=== PATIENT | female | born 1935 | race Caucasian/White ===

== ENCOUNTER 2018-10-22 09:32 | Inpatient (IN) | payer MEDICARE, BC ==
[~2018-10-22] VITALS: Ht 165.1 cm; Wt 68.3 kg
[2018-10-22] MEDS ORDERED: LOW DOSE ASPIRI81 M1 PO (09:59)
[2018-10-22 10:00] LABS: APPEARANCE CLEAR (CLEAR); COLOR COLORLESS (YELLOW)
[2018-10-22] MEDS ORDERED: FISH OIL 1,0001 CA1 PO (10:00)
[2018-10-22] MEDS ORDERED: CALCIUM 600 +1 EAC3 PO (10:00)
[2018-10-22] MEDS ORDERED: CELEXA20 MG PO (10:00)
[2018-10-22 10:01] LABS: BILIRUBIN NEGATIVE (NEGATIVE); GLUCOSE NEGATIVE (NEGATIVE); KETONE NEGATIVE (NEGATIVE); NITRITE NEGATIVE (NEGATIVE); PROTEIN NEGATIVE (NEGATIVE); UROBILINOGEN NORMAL (NORMAL)
[2018-10-22] MEDS ORDERED: LIPITOR10 MG PO (10:01)
[2018-10-22] MEDS ORDERED: ZESTORETIC 20-1 EACH PO (10:01)
[2018-10-22] MEDS ORDERED: FOLIC ACID1 MG PO (10:01)
[2018-10-22] MEDS ORDERED: TREXALL10 MG IM (10:03)
[2018-10-22] MEDS ORDERED: LOPRESSOR25 MG PO (10:03)
[2018-10-22] MEDS ORDERED: PREDNISONE1 MG PO (10:04)
[2018-10-22] MEDS ORDERED: PRESERVISION AREDS PO (10:05)
[2018-10-22] MEDS ORDERED: VITAMIN D31000 UNIT PO (10:06)
[2018-10-22 10:24] LABS: UDS - AMPHET NEGATIVE QUAL (NEGATIVE); UDS - BARB NEGATIVE QUAL (NEGATIVE); UDS - BENZO NEGATIVE QUAL (NEGATIVE); UDS - COCAINE NEGATIVE QUAL (NEGATIVE); UDS - OPIATE NEGATIVE QUAL (NEGATIVE); UDS - PCP NEGATIVE QUAL (NEGATIVE); UDS - THC NEGATIVE QUAL (NEGATIVE)
[2018-10-22 10:45] LABS: APTT 28.4 SECONDS (22.8-39.4); INR 1.02 (0.85-1.17); PROTIME 12.9 SECONDS (11.6-15.0)
[2018-10-22 10:49] LABS: ALBUMIN 3.7 g/dL (3.4-5.0); ALKALINE PHOSPHATASE 39 U/L (46-116); ALT (SGPT) 35 U/L (10-68); BILIRUBIN - TOTAL 0.78 mg/dL (0.2-1.3); CALC OSMOLALITY 283 mosm/kg (275-300); CALCIUM 9.8 mg/dL (8.5-10.1); CHLORIDE - SERUM 103 mmol/L (98-107); CREATININE - SERUM 0.6 mg/dL (0.6-1.3); GLUCOSE 98 mg/dL (74-106); POTASSIUM - SERUM 4.1 mmol/L (3.5-5.1); PROTEIN - SERUM 6.4 g/dL (6.4-8.2); SODIUM 143 mmol/L (136-145); UREA NITROGEN 9 mg/dL (7-18); eGFR NON AFRICAN AMERICAN > 90 mL/min (90-120)
[2018-10-22 11:03] LABS: BASOPHILS 0.4 % (0-2); EOSINOPHILS 1.3 % (0-7); HEMATOCRIT 41.4 % (36.0-48.0); IMMATURE GRANULOCYTES 0.4 % (0-5); LYMPHOCYTES 11.3 % (15-50); MCH 32.1 pg (26.0-34.0); MCHC 33.8 g/dL (31.0-37.0); MEAN PLATELET VOLUME 11.4 fL (7.4-10.4); MONOCYTES 8.6 % (2-11); PLATELET COUNT 286 10x3/uL (130-400); RBC 4.36 10x6/uL (4.00-5.40); RDW 15.1 % (11.5-14.5); WBC 11.2 10x3/uL (4.8-10.8)
[2018-10-22 11:16] LABS: CHOLESTEROL, TOTAL 126 mg/dL (0-200); HDL CHOLESTEROL 62 mg/dL (32-96); LDL CHOLESTEROL 50 mg/dL (0-100); LDL-HDL RATIO 0.8 ratio (1.5-3.5); MAGNESIUM - SERUM 1.9 mg/dL (1.8-2.4); THYROID STIMULATING HORMONE 0.72 uIU/mL (0.36-3.74); TRIGLYCERIDE 71 mg/dL (30-200)
[2018-10-22 15:08] VITALS: BP 135/74; BMI 24.7
--- NOTE | 2018-10-22 15:45 | NUR ---
The patient admits to us voluntarily with her daughters as POA, she is a DNR, she has increased confusion, insomnia, and she was seen ambulating the Crossing hallways without her pants and she has no recollection of this occurrence. She is tearful and angry at this time as she believes people are telling lies about her. She has one abdominal scar from a hysterectomy and an umbilical hernia. She uses a rolling walker to ambulate and has her personal walker. She is wearing white post ear rings, and has a pair of yellow metal glasses on. She has a partial plate uppers and a bottom plate denture. She has a small scab on her left vásquez about the size of a pencil eraser, She says she has no idea how she got the scab. The patient does have some noted memory deficits, but she is intelligent and provides a cover by stating "Well, doesn't everyone have memory lapses from time to time." It is noted that she is demanding and her daughters have stated she has always been one to control. Will monitor her mood and behaviors.
--- NOTE | 2018-10-22 19:57 | NUR ---
RECEIVED IN DAYROOM. SITTING IN A CHAIR. CALM AND COOPERATIVE WITH CARE AND ASSESSMENT. USES WALKER TO AMBULATE AROUND DAYROOM. SOCIAL AT TIMES. REDIRECT AND REORIENT NEEDED. SITTING AT [facility] SOCIALIZING WITH A PEER AT THIS TIME. CONTINUE PLAN OF CARE
[2018-10-23 08:34] VITALS: BP 153/70
--- NOTE | 2018-10-23 09:46 | NUR ---
PT SITTING UP IN DAYROOM. PT INSISTS THAT DAUGHTER HAS NO IDEA WHERE SHE IS AND THAT SHE NEEDS TO SEE HER RAKAN. PT TEARFUL AT THIS TIME. JENNIE.
[2018-10-23 20:00] VITALS: BP 149/76
--- NOTE | 2018-10-24 01:36 | NUR ---
B) Patient is alert and oriented to person and place, impatient and intrusive at times, I) Administered scheduled medications as ordered, monitored for safety and for needs, R) mediation compliant, pleasant and cooperative, P) Contionue plan of care,
--- NOTE | 2018-10-24 09:17 | NUR ---
CALL RESP DUE TO PATIENT O2 SAT NOT BEING OVER 78 ON FINGER AND UNABLE TO GET FROM EARLOBE. PER RESP 98% O2 SAT.
--- NOTE | 2018-10-24 09:30 | NUR ---
PATIENT SITTING IN CHAIR SOCIALIZING WITH PEERS. PT CAN AMBULATE WITH WALKER. COMPLIANT WITH MEDS, ASSESMENTS AND VITALS. PT IS CONFUSED AND ORIENTED TO SELF ONLY. WILL CONT PLAN OF CARE.
[2018-10-24 10:42] VITALS: BP 156/71
--- NOTE | 2018-10-24 12:36 | NUR ---
SPOKE WITH DAUGHTER. CODEWORD GIVEN AND CORRECT. UPDATE GIVEN. AND STATED THEY WERE COMING TO VISITATION.
[2018-10-24 13:30] VITALS: Ht 165.1 cm; Wt 68.3 kg
--- NOTE | 2018-10-24 15:07 | HP ---
PATIENT: DALIA MURILLO MEDICAL RECORD: [id number] ACCOUNT: [id number] LOCATION:[facility] Rivera5 : 37 ADMISSION DATE: 10/22/18 PCP: No PCP HISTORY AND PHYSICAL EXAMINATION IDENTIFYING DATA: The patient is 83 years old and she is admitted to the hospital on a voluntary basis. CHIEF COMPLAINT: Agitation. HISTORY OF PRESENT ILLNESS: The patient lives in a local assisted living center. She has not been sleeping. She has been wandering the halls and away from the facility and often becomes agitated, angry, and demanding when she is redirected. She is clearly quite impaired and has a history of dementia and does not have any recollection of these problems. PAST MEDICAL HISTORY: Significant for stroke, peripheral vascular disease, hyperlipidemia, rheumatoid arthritis, and hysterectomy. PAST PSYCHIATRIC HISTORY: Significant for an established diagnosis of dementia, although I do not have details about how or when that diagnosis was made. ALLERGIES: ARICEPT. CURRENT MEDICATIONS: Include: Aspirin, calcium, Celexa, folic acid, Lipitor, lisinopril, methotrexate, metoprolol, prednisone, and vitamin D3. FAMILY HISTORY: Unknown. SOCIAL HISTORY: The patient is and has adult children who are involved with her care. She is living in an assisted living center. She denies a history of drug or alcohol use and states she has never smoked cigarettes. MENTAL STATUS EXAMINATION: The patient is awake, alert, and oriented to person, place, time, and situation. Her mood is flat. Her affect is constricted. Thought processes are circumstantial. Memory, concentration, and abstraction abilities are at least moderately impaired. She denies any active intent to harm herself or others as well as overt psychotic symptoms. ASSETS: Supportive family members. LIABILITIES: Limited insight. DIAGNOSTIC IMPRESSION: AXIS I: Vascular dementia. AXIS II: None. AXIS III: Status post stroke, peripheral vascular disease, hyperlipidemia, hypertension, rheumatoid arthritis. AXIS IV: Moderate stressors. AXIS V: Global assessment of functioning is 30. PLAN: At this time, the patient is admitted to the hospital secondary to agitated and disruptive behaviors associated with a dementing illness. She will be treated with mood stabilizing and memory enhancing medications. Her long-term prognosis is guarded. HISTORY AND PHYSICAL [id number] DALIA MURILLO TRANSINT:[id number] Voice Confirmation ID: [id number] DOCUMENT ID: [id number] KRISTYN BARRIOS MD at 1507 CC: [id number] DICTATION DATE: 10/23/18 1622 GRINDING ROOM SUPERVISOR: 10/23/18 2145 ADM IN [place] [id number] [place] [id number]
--- NOTE | 2018-10-24 17:23 | NUR ---
FAMILY REQUEST MIRALAX OR SOME TYPE OF STOOL SOFTER. WILL REQUEST MEDICATION FROM DOCTOR.
--- NOTE | 2018-10-24 17:56 | NUR ---
PATIENT IS REQUESTING TO LEAVE AT THIS TIME STATING " MY DAUGHTER CAME TO GET ME AND WE VISITED. WENT OUT TO EAT AND SHE LEFT ME HERE." UNABLE TO REDIRECT PATIENT THAT THE DAUGHTER CAME FOR VISITATION. SHE THINKS SHE CAME HERE FOR A VISIT. SHE THINKS JOHN IS THE PATIENT AND THAT SHE NEEDS TO LEAVE. SHE IS NOT A PATIENT IN THE HOSPITAL.
--- NOTE | 2018-10-24 18:17 | NUR ---
PATIENT SPOKE WITH DAUGHTER ELI CHRISTINA. PATIENT THINKS THERE IS A SITUATION THAT SHE WILL NOT BE HOME TONIGHT. AND SHE TOLD HER THAT AND WAS ABLE TO BE REDIRECTED.
[2018-10-24 20:14] VITALS: BP 107/41
--- NOTE | 2018-10-25 02:51 | NUR ---
B.) PT IS ALERT AND ORIENTED TO SELF AND PLACE. SHE IS PLEASANT WITH STAFF AND PEERS. SHE CAN ME TEARFUL AT TIMES WHEN SHE STARTS TO FEEL INCREASING CONFUSION. I.) REDIRECT AND REORIENT OFTEN. R.) PT CAN OFTEN BE REDIRECTED AFTER MULTIPLE ATTEMPTS. P.) CONTINUE PLAN OF CARE
--- NOTE | 2018-10-25 08:31 | NUR ---
PATIENT AWAITING BREAKFAST IN CHAIR BY NURSES STATION. RESP EVEN AND NONLABORED. NO ACUTE DISTRESS NOTED. PT IS ALERT AND ORIENTED TO SELF ONLY. PT IS ASKING FOR HER DAUGHTER TO COME SEE HER TODAY AND THAT THE DOCTOR IS SUPPOSE TO BE COMING TO SEE HER TODAY. PT HAS NO SHORT TERM MEMORY. AMBULATES WITH A WALKER. CAN BE ARGUMENTIVE AT TIMES. CAN BE HARD TO REDIRECT. WILL CONT PLAN OF CARE.
[2018-10-25 08:43] VITALS: BP 126/65
[2018-10-25 09:15] VITALS: BP 156/71
--- NOTE | 2018-10-25 10:05 | NUR ---
PATIENT DAUGHTER ELI CALLED TO CHECK ON PATIENT. PASSCODE GIVEN. UPDATE GIVEN. DAUGHTER ASKED ABOUT DISCHARGE PLANNING. EXPLAINED THAT IT WAS A BIT TOO SOON FOR DISCHARGE PLANNING. SHE VERBALIZIED UNDERSTANDING.
--- NOTE | 2018-10-25 10:17 | NUR ---
SPOKE WITH [facility] THE CROSSING TO CHECK ON PATIENT PROGRESS AND TO ASK ABOUT PATIENT DISCHARGE. EXPLAINED PATIENT HAD NOT BEEN IN THE UNIT LONG ENOUGH FOR EXACT DISCHARGE DATE. SHE SAID SHE WOULD CALL BACK NEXT WEEK FOR MORE DISCHARGE INFORMATION.
--- NOTE | 2018-10-25 14:55 | NUR ---
The patient is confused, she saays "Is someone trying to get in touch with Mevli?" Tried to explain to her that "No, today is not visitation day, but you can call her at 5:30." She is getting upset. She does not comprehend and she is forgetful from one minute to the next. She can be demanding and argumentative when staff does not agree to what she is saying.
--- NOTE | 2018-10-25 16:02 | PN ---
PATIENT:DALIA MURILLO MEDICAL RECORD: [id number] LOCATION:[facility]112 ADMISSION DATE: 10/22/18 PROGRESS NOTE DATE OF SERVICE: 10/24/2018 SUBJECTIVE: The patient's case was discussed with staff. She has no new complaint. OBJECTIVE: The patient is in good behavioral control with limited insight about her condition. She is somewhat labile, but is reasonably redirectable. ASSESSMENT: Dementia. PLAN: Current medicines have been reviewed and will be maintained. Long-term prognosis is guarded. TRANSINT:[id number] Voice Confirmation ID: [id number] DOCUMENT ID: [id number] KRISTYN BARRIOS MD at 1602 CC: [id number] DICTATION DATE: 10/24/18 1547 EXTRUDING PRESS ADJUSTER: 10/24/18 2317 ADM IN [place] [id number] [place] [address]
--- NOTE | 2018-10-25 19:08 | NUR ---
NURSE OVERHEARD PATIENT ON PHONE STATING "I NEED TO GO TO THE BATHROOM BUT THEY WON'T LET ME GO." MHT TOOK PATIENT INTO THE RESTROOM TO USE. NURSE ASKED PATIENT TO HAVE HER DAUGHTER CALL BACK SO THAT SHE COULD GO TO THE RESTROOM. ELI VOICED UNDERSTANDING. MHT TOOK PATIENT INTO THE RESTROOM. PATIENT CALLED DAUGHTER BACK AND SPOKE WITH HER. DAUGHTER VOICED UNDERSTANDING ABOUT THE SITUATION.
[2018-10-25 20:17] VITALS: BP 117/58
--- NOTE | 2018-10-25 20:18 | NUR ---
PATIENT IS CONFUSED, HAS TO BE REMINDED WHY SHE IS IN HERE, SHE'S EMOTIONAL ABOUT BEING IN HERE. COMPLIANT WITH MEDS. WILL FOLLOW POC
[2018-10-26 07:30] VITALS: BP 122/54
--- NOTE | 2018-10-26 12:44 | PN ---
PATIENT:DALIA MURILLO MEDICAL RECORD: [id number] LOCATION:[facility] [address]112 ADMISSION DATE: 10/22/18 PROGRESS NOTE DATE OF SERVICE: 10/25/2018 SUBJECTIVE: The patient's case was discussed with staff. She has no new complaint. OBJECTIVE: The patient is oriented to person and has a very pleasant and euthymic mood. Unfortunately, she has almost no short term memory and is asking the same questions repeatedly almost back to back. ASSESSMENT: Dementia. PLAN: Current medicines have been reviewed and will be maintained. She is not presenting an active danger to herself and I would recommend that alternate placement be sought. She is inappropriate for assisted living and needs a higher level of care. Efforts will be made to assist the family with that. TRANSINT:[id number] Voice Confirmation ID: [id number] DOCUMENT ID: [id number] KRISTYN BARRIOS MD at 1244 CC: [id number] DICTATION DATE: 10/25/18 1609 FREIGHT FLAGMAN: 10/25/18 1920 ADM IN [facility] [address] [place] [id number]
--- NOTE | 2018-10-26 14:50 | NUR ---
PATIENT IS ALERT AND ORIENTED TO SELF ONLY. CONFUSION NOTED. PT HAS POOR INSIGHT AND VERY SHORT TERM MEMORY. PT CAN MAKE NEEDS KNOWN. ENCOURAGE PT TO DRINK FLUIDS. COMPLIANT WITH MEDS, ASSESSMENTS AND VITALS. WILL CONT PLAN OF CARE.
--- NOTE | 2018-10-26 19:55 | NUR ---
AMBULATING IN HALLWAY WITH ASSIST OF ROLLING WALKER. CONFUSED. ORIENTED TO SELF AND HOSPITAL. RECURRENT THEMES INVOLVING HER DAUGHTER JOHN. WANTING JOHN TO BE CALLED SO SHE WOULD KNOW WHERE SHE IS AND RELATED JOHN TOLD HER SHE WOULD BE IN BED BEFORE MIDNIGHT TONIGHT. PLEASANT. DOES BECOME TEARFUL AND NEEDS REASSURANCE THAT THINGS ARE ALRIGHT. ADMINISTER MED PER ORDERS Q SHIFT AND MONITOR COMPLIANCE. REORIENT NEEDED. MED COMPLIANT. POOR REORIENTATION DUE TO IMPAIRED ABILITY TO RETAIN INFORMATION. CONTINUE POC AND PROVIDE SAFE ENVIRONMENT.
[2018-10-26 20:00] VITALS: BP 119/50
[2018-10-27 08:14] VITALS: BP 96/57
--- NOTE | 2018-10-27 11:14 | NUR ---
B) The patient is awake and alert, she is confused and forgets within minutes. She is tearful at times. She requires a lot of 1:1 attention. I) Provide prescribed meds. R) The patient is compliant with meds. P) Continue POC.
--- NOTE | 2018-10-27 11:29 | PN ---
PATIENT:DALIA MURILLO MEDICAL RECORD: [id number] LOCATION:[facility] [address]112 ADMISSION DATE: 10/22/18 PROGRESS NOTE DATE OF SERVICE: 10/26/2018 SUBJECTIVE: The patient's case was discussed with staff. She has no new complaint. OBJECTIVE: The patient slept well and ate well last night. She is confused, but has not been agitated today. ASSESSMENT: No change in diagnoses. PLAN: The patient is in need of 92-gkvz-s-day supervision. Current medicines have been reviewed. TRANSINT:[id number] Voice Confirmation ID: [id number] DOCUMENT ID: [id number] KRISTYN BARRIOS MD at 1129 CC: [id number] DICTATION DATE: 10/26/18 1313 AVIONICS SAFETY INSPECTOR: 10/26/18 1356 ADM IN [place] [id number] [place] [address]
--- NOTE | 2018-10-27 19:19 | NUR ---
PATIENT ASKED FOR NURSE TO HAVE A DOCTOR COME TO CHECK HER HEART. NURSE OFFERED TO CHECK HER HEART AND SHE REFUSED STATING "I WANT A ACTUAL MEDICATION DOCTOR TO CHECK ME." NURSE EXPLAINED TO PATIENT THAT THE DOCTOR ROUNDED IN THE HOSPITALS TODAY AND WOULD BE BACK TOMORROW. WE COULD CALL THE DOCTOR TO TELL THEM WHAT WAS WRONG. SHE REFUSED STATING SHE WANTED TO TALK TO THE DOCTOR." PATIENT DID NOT BELIEVE NURSE. 3X STAFF MEMBERS ATTEMPTED TO EXPLAIN. PT DID NOT BELIEVE STAFF.
[2018-10-27 20:00] VITALS: BP 138/59
--- NOTE | 2018-10-27 20:45 | NUR ---
RECEIVED IN DINING AREA. WALKING FROM BATHROOM. CALM AND COOPERATIVE WITH CARE AND ASSESSMENT. CONFUSED. CALM AND COOPERATIVE WITH CARE AND ASSESSMENT. SITTING IN A CHAIR IN DAYROOM AT THIS TIME. CONTINUE PLAN OF CARE
[2018-10-28 08:00] VITALS: BP 133/64
--- NOTE | 2018-10-28 13:29 | NUR ---
PT IS ALERT TO PERSON. PT IS CALM AND COOPERATIVE WITH ASSESSMENT. MED COMPLIANT. REDIRECT AND REORIENT NEEDED. FALL PRECAUTIONS IN PLACE. WILL CPOC.
--- NOTE | 2018-10-28 15:00 | PN ---
PATIENT:DALIA MURILLO MEDICAL RECORD: [id number] LOCATION:[facility] [address]112 ADMISSION DATE: 10/22/18 PROGRESS NOTE DATE OF SERVICE: 10/27/2018 SUBJECTIVE: The patient's case was discussed with staff. She has no new complaint. OBJECTIVE: The patient is in good behavioral control, but quite confused. ASSESSMENT: No change in diagnoses. PLAN: The patient is going to be started on Namenda at a dose of 2.5 mg twice daily. Namenda is being used to treat her underlying cognitive impairment. Her long-term prognosis is guarded. TRANSINT:[id number] Voice Confirmation ID: [id number] DOCUMENT ID: [id number] KRISTYN BARRIOS MD at 1500 CC: [id number] DICTATION DATE: 10/27/18 1140 PHARMACOGENETICIST: 10/27/18 1247 ADM IN [place] [id number]
[2018-10-28 20:20] VITALS: BP 127/42
--- NOTE | 2018-10-28 21:33 | NUR ---
RECEIVED IN DAYROOM. SITTING IN A CHAIR WITH PEERS AT HER SIDE. SOCIALIZING AT TIMES. CALM AND COOPERATIVE WITH CARE AND ASSESSMENT. POOR SHORT TERM MEMORY. REDIRECT AND REORIENT NEEDED. RESTING IN BED WITH EYES OPEN AT THIS TIME. CONTINUE PLAN OF CARE
[2018-10-29 08:00] VITALS: BP 125/59
--- NOTE | 2018-10-29 09:24 | PN ---
PATIENT:DALIA MURILLO MEDICAL RECORD: [id number] LOCATION:[facility]112 ADMISSION DATE: 10/22/18 PROGRESS NOTE DATE OF SERVICE: 10/28/2018 SUBJECTIVE: The patient's case was discussed with staff. She has no new complaint. OBJECTIVE: The patient is in good behavioral control with limited insight about her condition. She is tolerating her medicines well. ASSESSMENT: No change in diagnoses. PLAN: Brief supportive and educational interventions were made. Long-term prognosis is guarded. TRANSINT:[id number] Voice Confirmation ID: [id number] DOCUMENT ID: [id number] KRISTYN BARRIOS MD at 0924 CC: [id number] DICTATION DATE: 10/28/18 1613 SPA MANAGER: 10/28/18 2102 ADM IN [place] [id number] [place] [address]
--- NOTE | 2018-10-29 13:15 | NUR ---
PT IS ALERT TO PERSON AND PLACE. CALM AND COOPERATIVE WITH ASSESSMENT. MED COMPLIANT. REDIRECT AND REORIENT NEEDED. FALL PRECAUTIONS IN PLACE. NO BEHAVIORS NOTED AT THIS TIME. WILL CPOC.
--- NOTE | 2018-10-29 18:14 | NUR ---
PT VERY CONFUSED, GOT LOST RETURNING FROM THE B/R. ASKED PERMISSION TO CALL DTR. PT REMINDED TO DIAL 9 BEFORE THE NUMBER. PT DIALED DTR AND LEFT VOICE MAIL STATING THAT SHE HAD BEEN LEFT HERE WITH A NOTED STATING WHEN SHE COULD LEAVE.
--- NOTE | 2018-10-29 18:36 | NUR ---
PT. CALLED DTR AGAIN AND STATED, "JOHN COME GET ME! THEY HAVE LOCKED US UP IN HERE AND THERE ARE SICK PEOPLE HERE! CALL DR MALAGON AND GET ME OUT OF HERE, NOW!" AT THAT POINT, PT. ENDED THE CALL.
--- NOTE | 2018-10-29 20:58 | NUR ---
PATIENT CONFUSED AND RELATED SHE IS NOT SUPPOSE TO HAVE THESE MEDICATIONS ANYMORE. "JOHN HAS BEEN CHECKING MY BLOOD FOR THESE MEDICINES AND I'M TELLING YOU I'M NOT SUPPOSE TO HAVE IT." PATIENT PUT PILLS IN HAND AND NURSE OBSERVED PATIENT DROPPED TWO OF THEM IN THE BED. NURSE PICKED THEM UP AND OBSERVED PATIENT TAKING THEM. MHT CAME IN THE ROOM AND PATIENT TOLD NURSE SHE DIDN'T NEED TO BE HERE. AND WHEN PATIENT WAS ASKED WHY SHE FELT THAT PATIENT RELATED "I DON'T TRUST HER. IF SOMETHING HAPPENS TO ME TONIGHT BLAME HER."
--- NOTE | 2018-10-29 21:11 | NUR ---
RECEIVED IN DAYROOM. SITTING IN A CHAIR SOCIALIZING WITH PEERS AT TIMES. CALM AND COOPERATIVE WITH CARE AND ASSESSMENT. POOR MEMORY. CONFUSED. REDIRECT AND REORIENT NEEDED. RESTING IN BED WITH EYES CLOSED AT THIS TIME. CONTINUE PLAN OF CARE
[2018-10-29 21:49] VITALS: BP 109/41
[2018-10-30 10:00] VITALS: BP 115/52
--- NOTE | 2018-10-30 10:00 | NUR ---
PATIENT IS AWAKE AND ALERT, WITH SOME CONFUSION NOTED. ASSESSMENT AND CARE COMPLETED. SMILING AND PLEASANT MOOD TODAY. MEDIC ATION COMPLIANT. REDIRECT AND REORIENT NEEDED. CONTINUE PLAN OF CARE.
--- NOTE | 2018-10-30 18:58 | PN ---
PATIENT:DALIA MURILLO MEDICAL RECORD: [id number] LOCATION:[facility] [address]112 ADMISSION DATE: 10/22/18 PROGRESS NOTE DATE OF SERVICE: 10/29/2018 SUBJECTIVE: The patient's case was discussed with staff. She has no new complaint. OBJECTIVE: The patient is in good behavioral control with limited insight about her condition. She tolerates her medicines well. ASSESSMENT: No change in diagnoses. PLAN: Supportive and educational interventions were made. Long-term prognosis is guarded. TRANSINT:[id number] Voice Confirmation ID: [id number] DOCUMENT ID: [id number] KRISTYN BARRIOS MD at 1858 CC: [id number] DICTATION DATE: 10/29/18 1041 CHEMIC MANGLER: 10/29/18 1314 ADM IN [place] [id number] [place] [address]
[2018-10-30 21:10] VITALS: BP 110/50
--- NOTE | 2018-10-30 21:59 | NUR ---
PATIENT IS CONFUSED AND IS SAYING THAT SHE IS SUPPOSED TO BE IN A MEETING AND THAT SHE NEEDS TO BE IN A MEETING NOW. COMPLIANT WITH MEDS, HOWEVER PATIENT DOES NOT TRUST ANYONE, SHE SECOND GUESSES STAFF ALWAYS. WILL FOLLOW POC
[2018-10-31 09:41] VITALS: BP 149/65
--- NOTE | 2018-10-31 10:32 | NUR ---
B) The patient is calm and pleasant this am, she has poor insight into her situation, she does not believe she has any reason to be here. She does ask for a lot of assistance. She uses a rolling walker to ambulate. I) Provide prescribed meds. R) The patient is compliant with meds. P) Continue POC.
--- NOTE | 2018-10-31 11:04 | NUR ---
NUTRITION F/U PT TOLERATING AHA DIET WITH 78% AVERAGE INTAKE RECENT MEALS. WT STABLE AT THIS TIME. +BM RECORDED. WILL CONTINUE TO PROVIDE DIET, MONITOR PO INTAKE AND WT. RD FOLLOWING
--- NOTE | 2018-10-31 12:10 | NUR ---
The patient is so confused, she requests staff to help her in the bathroom, staff did take her and she said "Well, do I sit here and what if I have to go more than just pee?" Explained to her that it is ok.
--- NOTE | 2018-10-31 13:52 | PN ---
PATIENT:DALIA MURILLO MEDICAL RECORD: [id number] LOCATION:[facility] ALFR[facility]O F[address]dez112 ADMISSION DATE: 10/22/18 PROGRESS NOTE DATE OF SERVICE: 10/30/2018 SUBJECTIVE: The patient's case was discussed with staff. She has no new complaint. OBJECTIVE: The patient is eating adequately and sleeping well. She has not been disruptive or agitated in any way, although she is very upset about the circumstances being here and very much wants to just go home. Her short term memory is completely absent. Every single day, she meets me for the first time and then complains that I have never spoken to her. She has almost no insight about her impairment. She most certainly is in need of a situation that is safe and secure and provides 11-mjub-z-day supervision. The forensic social worker is working on this with her daughter. ASSESSMENT: Dementia. PLAN: The patient's Namenda will be increased slightly. Long-term prognosis is guarded. TRANSINT:[id number] Voice Confirmation ID: [id number] DOCUMENT ID: [id number] KRISTYN BARRIOS MD at 1352 CC: [id number] DICTATION DATE: 10/30/182009 RIVER RAT: 10/31/18 0040 ADM IN [place] [address] [place] [address]
--- NOTE | 2018-10-31 15:20 | NUR ---
The patient gets frustrated and she wants staff to listen to her and pay attention to her, but she is confused and she is nosensical. She told Dr. Garcia that her birthday is in two days. Dr. Garcia said "Oh, when is your birthday?" She said "[birth year]." She said "I'm 89 years old." She is [address] Garcia said "Well, that's a about three months from now." She said "Well, I can celebrate my birthday in two days." She proceeded to say that she wanted to know how to spell the 's name so when she did a write up on him she'd spell the name right.
--- NOTE | 2018-10-31 18:36 | NUR ---
The patient has been laughing and joking with staff and then she went to the bathroom and came back into the day room and she was in a completely different mood. She was so confused and she said "So, what do we do now?" Explained to her that "Now we just sit in the day room and wait for the mine shifter and then we can go to our rooms." She said "I have never been to my room." This made her tearful that she didn't know what to do. She sat down and started watching T.V.
--- NOTE | 2018-10-31 19:35 | NUR ---
REC'D SITTING IN THE DAYROOM. CONFUSED AND NO INSIGHT INTO THE REASON FOR HOSPITALIZATION. ARGUMENTATIVE WITH STAFF. DIFFICULTY FOLLOWING TOPIC OF CONVERSATION. HAS DIFFICULTY FINISHING SENTENCES. ADMINISTER MEDS AND MONITOR COMPLIANCE. REORIENT NEEDED. MED COMPLIANT AFTER MAKING THE NURSE WRITE EACH MED SHE WAS RECEIVING BEFORE SHE WOULD TAKE THEM. REMAINS DEMANDING. POOR REORIENTATION DUE TO IMPAIRED ABILITY TO RETAIN INFORMATION AND BECOMING ARGUMENTAIVE WHEN STAFF TRIES EXPLAINING THINGS TO HER. CONTINUE POC AND PROVIDE SAFE ENVIRONMENT.
[2018-10-31 20:05] VITALS: BP 124/52
[2018-11-01 09:35] VITALS: BP 106/53
[2018-11-01 09:56] VITALS: BP 110/58
--- NOTE | 2018-11-01 10:47 | NUR ---
B) The patient is awake and alert, she is child like as she asks someone to help her and she will say "Now, wait a minute, wait a minute." She requires a lot of 1:1 attention and she does not listen to reason at times. She ambulates with her rolling walker. I) Provide prescribed meds. R) The patient is compliant with meds. She is interacting in groups and does well when she is busy. She gets tearful and gets her feelings hurt easily. P) Continue POC.
--- NOTE | 2018-11-01 15:52 | PN ---
PATIENT:DALIA MURILLO MEDICAL RECORD: [id number] LOCATION:[facility] Rivera ADMISSION DATE: 10/22/18 PROGRESS NOTE DATE OF SERVICE: 10/31/2018 SUBJECTIVE: The patient's case was discussed with staff. She has no new complaint. OBJECTIVE: The patient is eating and sleeping well. She has virtually no short term memory. Once again today, she has no recollection of meeting me and is angry that she has been here all this time and never talked to a doctor. She has similar things she does with the nursing staff and redirecting her is difficult because she knows something is not correct, but she cannot remember what is being said to her day-to-day. More accurately, she cannot remember what is being said to her prmpuh-ix-fqpglo. She sometimes asks the same question ibsg-io-fxym. She has no short-term memory at all. ASSESSMENT: No change in diagnoses. PLAN: The patient needs 74-kksh-u-day supervision. Soon as correction placement is arranged, I think she could be reasonably transitioned there. TRANSINT:[id number] Voice Confirmation ID: [id number] DOCUMENT ID: [id number] KRISTYN BARRIOS MD at 1552 CC: [id number] DICTATION DATE: 10/31/18 1545 CHIEF CONTROLLER: 10/31/18 1603 ADM IN [place] [id number] [place] [id number]
--- NOTE | 2018-11-01 18:38 | NUR ---
The patient gets so upset and she gets confused and does not know what she is saying, but believes she does and does not believe she is safe and she says she is scared. She says "I'm hurt because I am not being done right, I'm not being done the way I was told I was." She takes a little bit from one conversation and then peices things together that are not accurate and she gets upset.
[2018-11-01 20:58] VITALS: BP 135/59
--- NOTE | 2018-11-02 01:36 | NUR ---
B) Patient is alert and oriented to person and place, argumentive and not wanting to take her medications, convinced that the Doctor does not want her to take her medications, I) Administered scheduled medications as ordered, monitored for safety R) Mediation compliant because i used a different nurse P) Continue plan of care.
[2018-11-02 09:19] VITALS: BP 108/62
--- NOTE | 2018-11-02 10:00 | NUR ---
PATIENT IS AWAKE AND ALERT, MORE SOCIABLE WITH STAFF AND PEERS. SMILES A LOT. CALM AND COOPERATIVE WITH ASSESSMENT AND CARE. MEDICATION COMPLIANT. REDIRECT AND REORIENT NEEDED. WILL CONTINUE POC.
--- NOTE | 2018-11-02 12:02 | PN ---
PATIENT:DALIA MURILLO MEDICAL RECORD: [id number] [facility] ADMISSION DATE: 10/22/18 PROGRESS NOTE DATE OF SERVICE: 11/01/2018 SUBJECTIVE: The patient's case was discussed with staff. She has no new complaint. OBJECTIVE: The patient denies intent to harm herself or others. She is tolerating her medicines well. ASSESSMENT: No change in diagnoses. PLAN: I anticipate she can be transitioned out of the hospital as soon as I understand that a long-term has been selected. TRANSINT:[id number] Voice Confirmation ID: [id number] DOCUMENT ID: [id number] KRISTYN BARRIOS MD at 1202 CC: [id number] DICTATION DATE: 11/01/18 165 ENGRAVER PICTURE: 11/01/18 2100 ADM IN [facility] [address] [place] [address]
[2018-11-02 20:00] VITALS: BP 129/44
--- NOTE | 2018-11-03 03:12 | NUR ---
B.) PT IS ALERT AND ORIENTED TO SELF ONLY. SHE IS INTRUSIVE WITH STAFF AND CONFUSED. SHE IS MANIPULATIVE WITH STAFF AND PEERS. ATTENTION SEEKING AND SEEKS VALIDATION FROM STAFF WITH ADL'S. SHE IS ARGUMENTATIVE WITH STAFF OVER POLICY ON PHONE CALLS AT 2300. I.) REDIRECT AND REORIENT OFTEN. MONITOR FOR SIGNS OF INCREASED AGGITATION R.) PT IS DIFFICULT TO REDIRECT. SHE BECOMES UPSET WHEN SHE CANNOT MANIPULATE STAFF. P.) CONTINUE PLAN OF CARE
--- NOTE | 2018-11-03 03:24 | NUR ---
PT IS MANIPULATIVE WHEN IT COMES TO MEDICATION ADMINISTRATION. SHE STATES "HER DAUGHTER WORKS FOR DR. BARRIOS AND THERE IS AN INVESTIGATION IN THE NEED FOR HER MEDICATIONS." SHE IS TANGETIAL IN REFUSAL OF HER MEDICATIONS.
[2018-11-03 07:00] VITALS: BP 122/47
--- NOTE | 2018-11-03 10:00 | NUR ---
RECEIVED PT IN DINING ROOM FOR B'FAST, ALERT, CALM, COOPERATIVE, PLEASANT. MEDS ADMIN PER ORDERS WITH COMPLETE MED COMPLIANCE NOTED. NO BEHAVIORAL ISSUES NOTED. CONT POC DIRECTED.
--- NOTE | 2018-11-03 17:20 | NUR ---
FAMILY HERE DURING VISITATION HOURS.
[2018-11-03 20:00] VITALS: BP 130/79
--- NOTE | 2018-11-03 20:40 | NUR ---
B.) PT IS INTRUSIVE WITH STAFF AND TRYING TO START ISSUES BETWEEN STAFF AND RESIDENTS. SHE IS OBSERVED TALKING NEGATIVELY ABOUT THE STAFF AND TRYING TO UPSET PEERS. SHE IS ARGUMENTATIVE AND STATES THAT "DR. BARRIOS IS INVESTIGATING HER MEDICATIONS AND THAT SHE ISNT SUPPOSED TO TAKE ANY OF THE MEDICATIONS UNTIL DENIS SAID." I INFORMED HER THAT HER MAR IS UP TO DATE AND SHE TOOK HER MEDICATIONS. SHE STATED "YOU ARENT LISTENING TO ME AND I WILL BE SERVING YOU TOMMORROW." I.) PROVIDED PM MEDICATIONS. REDIRECT AND REORIENT. R.) COMPLIANT WITH MEDICATION. DIFFICULT TO REDIRECT AND REMAINS ARGUMENTATIVE. P.) CONTINUE PLAN OF CARE
[2018-11-04 07:00] VITALS: BP 122/71
--- NOTE | 2018-11-04 10:25 | NUR ---
RECEIVED PT IN DINING ROOM FOR B'FAST, ALERT, CALM, DEMANDING, APPETITE GOOD. MEDS ADMIN PER ORDERS WITH COMPLETE MED COMPLIANCE NOTED. CONT PLAN OF CARE UNTIL DISCHARGE LATER THIS SHIFT.
--- NOTE | 2018-11-04 15:51 | PN ---
PATIENT:DALIA MURILLO MEDICAL RECORD: [id number] LOCATION:[facility] ADMISSION DATE: 10/22/18 PROGRESS NOTE DATE OF SERVICE: 11/03/2018 SUBJECTIVE: The patient's case was discussed with staff. She has no new complaint. OBJECTIVE: The patient is in good behavioral control with limited insight about her condition. She tolerates her medicines well. ASSESSMENT: No change in diagnoses. PLAN: Current medicines have been reviewed and will be maintained. Long-term prognosis is guarded. TRANSINT:[id number] Voice Confirmation ID: [id number] DOCUMENT ID: [id number] KRISTYN BARRIOS MD at 1551 CC: [id number] DICTATION DATE: 11/03/18 0942 ENTRY LEVEL FINANCE: 11/03/18 1516 ADM IN [place] [id number] [place] [address]
--- NOTE | 2018-11-04 15:51 | PN ---
PATIENT:DALIA MURILLO MEDICAL RECORD: [id number] LOCATION:[facility] ADMISSION DATE: 10/22/18 PROGRESS NOTE DATE OF SERVICE: 11/02/2018 SUBJECTIVE: The patient's case was discussed with staff. She has no new complaint. OBJECTIVE: The patient is in good behavioral control, but severely impaired cognitively. She has no short-term memory. ASSESSMENT: Dementia. PLAN: The patient's received supportive and educational interventions. Her questions were answered. Long-term prognosis is guarded. TRANSINT:[id number] Voice Confirmation ID: [id number] DOCUMENT ID: [id number] KRISTYN BARRIOS MD at 1551 CC: [id number] DICTATION DATE: 11/02/18 1248 VERTICA ARCHITECT: 11/02/18 1457 ADM IN [place] [id number] [place] [address]
[2018-11-04] MEDS ORDERED: DESERYL PO (16:52)
[2018-11-04] MEDS ORDERED: HCTZ25 MG PO (16:52)
[2018-11-04] MEDS ORDERED: NAMENDA5 MG PO (16:52)
[2018-11-04] MEDS ORDERED: LISINOPRIL10 MG PO (16:52)
[2018-11-04] MEDS ORDERED: Senokot TAB PO (16:53)
[2018-11-04] MEDS ORDERED: MIRALAX17 GM PO (16:53)
--- NOTE | 2018-11-05 02:41 | NUR ---
REC'D SITTING IN THE DAYROOM. ORIENTED TO SELF ONLY. WHEN ASKED THE RESON FOR HOSPITALIZATION PATIENT RELATES "IT BEATS THE HECK OUT OF ME. ALL THIS CRAZINESS DOWN HERE. DELUSIONAL RELATING "I'VE BEEN HELPING TAKE CARE OF THESE PEOPLE BEING THEY DON'T EVER KNOW WHERE THEY ARE." DOES NOT WANT STAFF TO LEAVE HER TO TAKE OF THE OTHERS PATIENT WILL KEEP CALLING YOU BACK TO TELL YOU SOMETHING ELSE. ADMINISTER MED PER ORDERS Q SHIFT AND MONITOR COMPLIANCE. REORIENT Q SHIFT AND NEEDED. QUESTIONS STAFF EVERYTIME ABOUT HER MEDICATIONS RELATING SHE IS NOT SUPPOSE TO HAVE THEM BUT WILL EVENTUALLY TAKE THEM RELUCTANTLY. POOR REORIENTATION DUE IMPAIRED ABILITY TO PROCESS AND RETAIN INFORMATION.
--- NOTE | 2018-11-05 09:00 | NUR ---
PATIENT IS AWAKE AND ORIENTED TO SELF ONLY, SMILLING AND IN GOOD MOOD TODAY. CALM AND COOPERATIVE WITH CARE AND ASSESSMENT. NO BEHAVIOR ISSUES NOTED. MEDICATION COMPLIANT, VERY MINIMAL DIFFICULTY THIS MORNING. WILL CONTINUE TO MONITOR.
--- NOTE | 2018-11-05 10:30 | NUR ---
DISCHARGED TO [facility] VIA CAR, ACCOMPANIED BY HER 2 DAUGHTERS. BELONGINGS COLLECTED AND SENT WITH FAMILY. DISCHARGE INSTRUCTIONS REVIEWED WITH FAMILY.
[2018-11-05 10:37] VITALS: BP 129/79
--- NOTE | 2018-11-05 12:36 | PN ---
PATIENT:DALIA MURILLO MEDICAL RECORD: [id number] LOCATION:[facility] ADMISSION DATE: 10/22/18 PROGRESS NOTE DATE OF SERVICE: 11/04/2018 SUBJECTIVE: The patient's case was discussed with staff. She has no new complaint. OBJECTIVE: The patient is in good behavioral control with limited insight about her condition. She is tolerating her medicines well. ASSESSMENT: Dementia. PLAN: The patient will be transitioned out of the hospital tomorrow. She is going to be transferred to the [facility] for rehabilitative and possibly snf services. TRANSINT:[id number] Voice Confirmation ID: [id number] DOCUMENT ID: [id number] KRISTYN BARRIOS MD at 1236 CC: [id number] DICTATION DATE: 11/04/18 165 LIFE SKILLS CONSULTANT: 11/04/18 1844 ADM IN [place] [id number] [place] [id number]
--- NOTE | 2018-11-06 15:30 | PN ---
PATIENT:DALIA MURILLO MEDICAL RECORD: [id number] LOCATION:[facility] ADMISSION DATE: 10/22/18 PROGRESS NOTE DATE OF SERVICE: 11/05/2018 SUBJECTIVE: The patient's case was discussed with staff. She has no new complaint. OBJECTIVE: The patient is in good behavioral control with limited insight about her condition. She is impaired cognitively. ASSESSMENT: Dementia. PLAN: The patient will be [facility]ed [facility]. Her long-term prognosis is guarded. TRANSINT:[id number] Voice Confirmation ID: [id number] DOCUMENT ID: [id number] KRISTYN BARRIOS MD at 1530 CC: [id number] DICTATION DATE: 11/05/18 1310 BATH TESTER: 11/05/18 1319 DIS IN 11/05/18 [facility] [address] [place] [address]
--- NOTE | 2018-11-20 15:47 | DS ---
PATIENT:DALIA MURILLO :39 MEDICAL RECORD: [id number] DISCHARGE SUMMARY ADMISSION DATE: 10/22/18 DISCHARGE DATE: 11/05/18 IDENTIFYING DATA: The patient is 83 years old and she is admitted to the hospital on a voluntary basis because of agitation. The patient lives in a local assisted living center where she had not been sleeping and had been wandering the halls and away from the facility. When redirected, she would become angry and even agitated. She was severely impaired cognitively and was admitted for evaluation and treatment of these symptoms. HOSPITAL COURSE: The patient was admitted to the hospital and fully evaluated from both a medical, psychological, and social standpoint. She was found to have a vascular dementia and was treated with mood stabilizing and memory enhancing medication. She did respond nicely, but I believe most of the response was just simply related to a structured and secure environment and it was recommended that she have a higher level of care than assisted living. She was subsequently transferred to a long-term. DISCHARGE DIAGNOSES: AXIS I: Major vascular neurocognitive disorder. AXIS II: None. AXIS III: Status post stroke, peripheral vascular disease, hyperlipidemia, hypertension, and rheumatoid arthritis. AXIS IV: Moderate stressors. AXIS V: Global assessment of functioning is 35. PLAN: At the time of discharge, the patient was not aggressive or in some way dangerous to herself or others. She has virtually no short term memory and continues to ask the same questions repeatedly sometimes within a minute or two apart. She is calm and reasonably redirectable. Unfortunately, her prognosis is poor and followup is to be with her primary care long-term physician. TRANSINT:[id number] Voice Confirmation ID: [id number] DOCUMENT ID: [id number] KRISTYN BARRIOS MD at 1547 CC: [id number] DICTATION DATE: 11/07/18 1358 FLASH DEVELOPER: 11/08/18 0228 DIS IN 11/05/18 [facility] [address] [place] [address]
== END 2018-11-05 10:30 | disposition home health service (06) | DRG 57 ==
LOC: D.ER 09:32 → D.PSYCH 12:41
PROVIDERS: Family Medicine; ADMIT Psychiatry & Neurology Psychiatry; ATTEND Psychiatry & Neurology Psychiatry
DX: I69.319 Unspecified symptoms and signs involving cognitive functions following cerebral infarction (principal); F01.51 Vascular dementia, unspecified severity, with behavioral disturbance; I73.9 Peripheral vascular disease, unspecified; E78.5 Hyperlipidemia, unspecified; I10 Essential (primary) hypertension; M06.9 Rheumatoid arthritis, unspecified; F41.8 Other specified anxiety disorders; G47.00 Insomnia, unspecified; E55.9 Vitamin D deficiency, unspecified; K59.00 Constipation, unspecified